=== PATIENT | female | born 1985 | race Caucasian/White ===

== ENCOUNTER 2020-05-19 08:50 | Emergency (ER) | payer MEDICAID ==
[~2020-05-19] VITALS: Ht 162.6 cm; Wt 49.9 kg
[2020-05-19 08:57] VITALS: BP 106/75
== END 2020-05-19 09:14 | disposition home or self-care (01) ==
LOC: ER 08:56
DX: L30.9 Dermatitis, unspecified (principal); L29.9 Pruritus, unspecified